=== PATIENT | female | born 1975 | race Caucasian/White ===

== ENCOUNTER 2025-10-30 10:37 | Inpatient (IN) | payer MEDICAID, OTHER ==
[~2025-10-30] VITALS: Ht 154.9 cm; Wt 47.6 kg
[2025-10-30] MEDS: NICOTINE 21 MG/24 HR 1 EA TRANSDERMAL TD ONE (11:01)
[2025-10-30] MEDS: ACETAMINOPHEN 325 MG TAB PO ONE (11:07)
[2025-10-30] MEDS ORDERED: HOME MED LIST COMPLETE! XX SCH (11:20)
[2025-10-30] MEDS ORDERED: HALOPERIDOL 5 MG TAB PO PRN (14:50)
[2025-10-30] MEDS ORDERED: OLANZapine 5 MG TAB PO PRN (14:50)
[2025-10-30] MEDS ORDERED: MOM 30 ML SUSPENSION UDC PO PRN (14:50)
[2025-10-30] MEDS ORDERED: MAALOX 30 ML SUSP *UDC PO PRN (14:50)
[2025-10-30] MEDS: ACETAMINOPHEN 325 MG TAB PO PRN (15:43)
[2025-10-30 17:47] VITALS: BP 158/76; TEMP 97.8; O2SAT 98
[2025-10-30] MEDS: IBUPROFEN 400 MG TAB PO PRN (19:42)
[2025-10-30] MEDS: traZODone 50 MG TAB PO PRN (20:54)
[2025-10-30] MEDS: LORazepam 1 MG TAB PO PRN (20:55)
[2025-10-31 06:29] VITALS: BP 166/86; TEMP 97.3; O2SAT 100
[2025-10-31] MEDS: NICOTINE 14 MG/24 HR TRANSDERMAL TD SCH (08:50)
[2025-10-31] MEDS: VENLAFAXINE **XR** 37.5 MG CAPSULE PO SCH (12:27)
[2025-10-31] MEDS: LIDOCAINE 5% PATCH TD SCH (13:37)
[2025-10-31] MEDS: IBUPROFEN 600 MG TAB PO PRN (15:17)
[2025-10-31 16:03] VITALS: BP 140/96; TEMP 98.2; O2SAT 98
[2025-11-01 06:20] VITALS: BP 146/85; TEMP 97.3; O2SAT 98
[2025-11-01 09:48] LABS: CHOLESTEROL LEVEL 237.0 MG/DL (<200); CHOLESTEROL RISK RATIO 2.36 (<5); LDL CHOLESTEROL 125.2 MG/DL (<100); NON-HDL-C 136.6 MG/DL; TRIGLYCERIDES LEVEL 57.0 MG/DL (<150)
[2025-11-01 18:39] VITALS: BP 147/88; TEMP 98.3
[2025-11-02 06:23] VITALS: BP 146/82; TEMP 97.6; O2SAT 96
[2025-11-02 15:07] VITALS: BP 125/71; TEMP 98.4; O2SAT 97
[2025-11-02] MEDS: NEOSPORIN TOP OINT 15 GM TOP PRN (17:10)
[2025-11-03 06:33] VITALS: BP 134/88; TEMP 97.4; O2SAT 99
[2025-11-03 15:12] VITALS: BP 144/76; TEMP 97.7; O2SAT 97
[2025-11-04 06:14] VITALS: BP 139/83; TEMP 97.9; O2SAT 96
[2025-11-04] MEDS: ACETAMINOPHEN 325 MG TAB PO PRN (09:20)
[2025-11-04] MEDS: IBUPROFEN 600 MG TAB PO PRN (13:55)
[2025-11-04 14:42] VITALS: BP 144/82; TEMP 98.3; O2SAT 97
[2025-11-04] MEDS: traZODone 25MG PER 1/2 TABLET PO PRN (21:25)
[2025-11-05 06:10] VITALS: BP 148/86; TEMP 97; O2SAT 98
[2025-11-05 15:18] VITALS: BP 144/82; TEMP 98; O2SAT 98
[2025-11-06 06:22] VITALS: BP 139/71; TEMP 97.2; O2SAT 95
[2025-11-06] MEDS: VENLAFAXINE **XR** 75MG CAPSULE PO SCH (08:13)
[2025-11-06 15:21] VITALS: BP 137/86; TEMP 98.3; O2SAT 99
[2025-11-07 06:18] VITALS: BP 134/85; TEMP 97.3; O2SAT 99
[2025-11-07 16:30] VITALS: BP 150/72; TEMP 97.9; O2SAT 97
[2025-11-08 06:28] VITALS: BP 145/91; TEMP 97.3; O2SAT 98
[2025-11-08] MEDS ORDERED: TRAZ-252 PO (08:58)
[2025-11-08] MEDS ORDERED: VENL75CA47 PO (08:58)
[2025-11-08] MEDS ORDERED: VALA500T5 PO (08:58)
[2025-11-08] MEDS ORDERED: ABIL1TAB13 PO (08:58)
[2025-11-08] MEDS ORDERED: NICO14PA TD (10:02)
== END 2025-11-08 12:39 | disposition home or self-care (01) | DRG 751 ==
LOC: M ED 10:37 → M ED INP 14:49 → M PSY 17:00
PROVIDERS: ADMIT Internal Medicine; ATTEND Psychiatry & Neurology Psychiatry
DX: F32.1 Major depressive disorder, single episode, moderate (principal); Z91.148 Patient's other noncompliance with medication regimen for other reason; R45.851 Suicidal ideations; F90.9 Attention-deficit hyperactivity disorder, unspecified type; F41.1 Generalized anxiety disorder; F43.10 Post-traumatic stress disorder, unspecified; F14.11 Cocaine abuse, in remission; F10.11 Alcohol abuse, in remission; F11.11 Opioid abuse, in remission; S42.002D Fracture of unspecified part of left clavicle, subsequent encounter for fracture with routine healing; Z81.1 Family history of alcohol abuse and dependence; Z81.8 Family history of other mental and behavioral disorders; Z91.51 Personal history of suicidal behavior; Z88.0 Allergy status to penicillin; Z56.0 Unemployment, unspecified; Z59.02 Unsheltered homelessness